=== PATIENT | female | born 1940 | race African-American/Black ===

== ENCOUNTER 2020-08-31 13:42 | Inpatient (IN) | payer MEDICARE, MEDICAID ==
[2020-08-31] MEDS ORDERED: Sodium Chloride 0.9% 1,000 ML ONE ×2 (14:01→15:36)
[2020-08-31 14:56] LABS: Bilirubin Negative (Negative); Blood, Urine Trace (Negative); Glucose, Urine (Dipstick) Negative (Negative); Ketone, Urine Negative (Negative); Leukocyte Small (Negative); Nitrite Positive (Negative); Protein, Urine (Dipstick) 30 mg/dL (Neg-Trace); Specific Gravity, Urine 1.015 (1.005-1.030); Urobilinogen 0.2 mg/dL (Less than 2)
[2020-08-31 15:03] LABS: ALT (SGPT) 10 U/L (8-55); AST (SGOT) 11 U/L (5-34); Albumin 3.3 g/dL (3.4-4.8); Alkaline Phosphatase 76 U/L (40-110); Anion Gap 17 mmol/L (10-20); BUN (Urea Nitrogen) 23 mg/dL (9.8-20.1); Bilirubin, Total 0.6 mg/dL (0.2-1.2); CK (CPK) 74 U/L (29-168); Calc. Creatinine Clearance 0 mL/min (70-130); Calcium 8.7 mg/dL (7.8-10.44); Carbon Dioxide 23 mmol/L (23-31); Chloride 102 mmol/L (98-107); Globulin 3.2 g/dL (2.4-3.5); Glucose 114 mg/dL (83-110); Magnesium 1.6 mg/dL (1.6-2.6); Potassium 3.9 mmol/L (3.5-5.1); Protein, Total 6.5 g/dL (5.8-8.1); Sodium 138 mmol/L (136-145)
[2020-08-31 15:12] LABS: Clarity Cloudy (Clear)
[2020-08-31 15:14] LABS: Bacteria/HPF 3+ HPF (None Seen); RBC/HPF 0-3 HPF (0-3)
[2020-08-31 15:20] LABS: Lymphocytes 3 % (21-51); MDiff Complete? YES; Mean Corpuscular HGB CONC 32.1 g/dL (32.0-36.0); Mean Corpuscular Volume 93.2 fL (78.0-98.0); Mean Platelet Volume 9.2 fL (7.4-10.4); Monocytes 4 % (0-10); Neutrophil 92 % (42-75); Platelet Count 266 thou/uL (130-400); Platelet Morphology Comment Appears Adequate; RBC Distribution Width 14.3 % (11.5-14.5); Reactive Lymphocytes 1 % (0-10); Red Blood Cell (RBC) Count 3.66 mill/uL (4.20-5.40); White Blood Cell (WBC) Count 26.6 thou/uL (4.8-10.8)
[2020-08-31] MEDS ORDERED: cefTRIAXone\\ROCEPHIN 1 GM VIAL ONE (15:36)
[2020-08-31] MEDS ORDERED: Sodium Chloride 0.9% 100 ML ONE (15:36)
[2020-08-31 17:49] LABS: Lactic Acid 2.4 mmol/L (0.5-2.2)
[2020-08-31] MEDS ORDERED: Ibuprofen 100 MG/5 ML UDCUP ONE (17:49)
[2020-08-31] MEDS ORDERED: GUAIFENESIN SF SOLN 200 MG/10 ML UDCUP PO PRN (23:36)
[2020-08-31] MEDS ORDERED: Mag-Al Plus 1200 MG/1200 MG/120 MG/30 ML UDCUP PO PRN (23:42)
[2020-08-31] MEDS ORDERED: Dextrose 5% in Water 1,000 ML IV PRN (23:45)
[2020-08-31] MEDS ORDERED: Dextrose 50% Abboject 50 ML SYRINGE IVP PRN (23:45)
[2020-08-31] MEDS ORDERED: Metoclopramide HCl 10 MG TAB PO PRN (23:46)
[2020-08-31] MEDS ORDERED: traMADol HCl 50 MG TAB PO PRN (23:47)
[2020-08-31] MEDS ORDERED: Artificial Tear Sol 15 ML BOT EA EYE PRN (23:49)
[2020-08-31] MEDS ORDERED: Loperamide HCl 2 MG CAP PO PRN ×2 (23:52→23:53)
[2020-08-31] MEDS ORDERED: DICLOFENAC 1% TD PRN (23:54)
[2020-09-01 01:07] VITALS: BMI 30.7
[2020-09-01] MEDS ORDERED: Dextrose 50% Abboject 50 ML SYRINGE SLOW IVP SCH (03:30)
[2020-09-01 05:38] LABS: Anion Gap 15 mmol/L (10-20); BUN (Urea Nitrogen) 21 mg/dL (9.8-20.1); Calc. Creatinine Clearance 45 mL/min (70-130); Calcium 9.4 mg/dL (7.8-10.44); Carbon Dioxide 25 mmol/L (23-31); Chloride 103 mmol/L (98-107); Glucose 82 mg/dL (83-110); Potassium 3.4 mmol/L (3.5-5.1); Sodium 140 mmol/L (136-145)
[2020-09-01 05:44] LABS: Hemoglobin 11.9 g/dL (12.0-16.0); Lymphocytes 17 % (21-51); MDiff Complete? YES; Mean Corpuscular HGB CONC 33.3 g/dL (32.0-36.0); Mean Corpuscular Volume 93.1 fL (78.0-98.0); Mean Platelet Volume 7.6 fL (7.4-10.4); Monocytes 4 % (0-10); Neutrophil 79 % (42-75); Platelet Count 305 thou/uL (130-400); Platelet Morphology Comment Appears Adequate; RBC Distribution Width 14.1 % (11.5-14.5); RBC Morphology Normal; Red Blood Cell (RBC) Count 3.85 mill/uL (4.20-5.40); White Blood Cell (WBC) Count 22.1 thou/uL (4.8-10.8)
[2020-09-01] MEDS: Potassium Chloride 10 MEQ TAB PO SCH (08:21)
[2020-09-01] MEDS: Aspirin 81 mg Enteric Coated Tablet PO SCH (08:21)
[2020-09-01] MEDS: DULoxetine 30 MG CAP PO SCH ×2 (08:22→21:06)
[2020-09-01] MEDS: Anastrozole 1 MG TAB PO SCH (08:22)
[2020-09-01] MEDS ORDERED: Furosemide 40 MG TAB PO SCH (09:00)
[2020-09-01] MEDS ORDERED: FLU VACC QS2020-21(65YR UP)/PF 240 MCG/0.7 ML SYRINGE IM ONE (09:00)
[2020-09-01] MEDS ORDERED: Furosemide 20 MG TAB PO SCH (14:00)
[2020-09-01] MEDS: D5 1/2 NS w/20 mEq KCL 1,000 ML IV SCH (14:07)
[2020-09-01] MEDS ORDERED: cefTRIAXone\\ROCEPHIN 1 GM in Sodium Chloride 0.9% 100 ML IVPB SCH (15:00)
[2020-09-01] MEDS: Enoxaparin Sodium 40 MG/0.4 ML SYRINGE SC SCH ×2 (21:06→21:18)
[2020-09-01] MEDS: Atorvastatin Calcium 10 MG TAB PO SCH (21:06)
[2020-09-01] MEDS: Latanoprost 0.005% Ophth Soln 2.5 ml Bottle EA EYE SCH (21:08)
[2020-09-02] MEDS: Acetaminophen 500 MG TAB PO PRN ×2 (00:04→21:33)
[2020-09-02] MEDS ORDERED: Dextrose 5 %-0.45 % NaCl 1,000 ML IV SCH (01:00)
[2020-09-02] MEDS: D5 1/2 NS w/20 mEq KCL 1,000 ML IV SCH (02:51)
[2020-09-02] MEDS: Cefepime 2 GM in Sodium Chloride 0.9% 100 ML IVPB SCH (03:10)
[2020-09-02 05:47] LABS: Anisocytosis SLIGHT = 6-15 cells (100X) (0-5/hpf); Eosinophils 5 % (0-10); Hemoglobin 10.7 g/dL (12.0-16.0); Hypochromia SLIGHT = 6-15 cells (100X) (0-5/hpf); Lymphocytes 11 % (21-51); MDiff Complete? YES; Mean Corpuscular HGB CONC 31.3 g/dL (32.0-36.0); Mean Corpuscular Volume 99.1 fL (78.0-98.0); Mean Platelet Volume 8.9 fL (7.4-10.4); Monocytes 4 % (0-10); Neutrophil 80 % (42-75); Platelet Count 298 thou/uL (130-400); Platelet Morphology Comment Appears Adequate; RBC Distribution Width 14.9 % (11.5-14.5); Red Blood Cell (RBC) Count 3.44 mill/uL (4.20-5.40); White Blood Cell (WBC) Count 20.9 thou/uL (4.8-10.8)
[2020-09-02 05:59] LABS: Anion Gap 17 mmol/L (10-20); BUN (Urea Nitrogen) 16 mg/dL (9.8-20.1); Calc. Creatinine Clearance 50 mL/min (70-130); Calcium 9.1 mg/dL (7.8-10.44); Carbon Dioxide 21 mmol/L (23-31); Chloride 104 mmol/L (98-107); Glucose 137 mg/dL (83-110); Potassium 3.9 mmol/L (3.5-5.1); Sodium 138 mmol/L (136-145)
[2020-09-02] MEDS: Anastrozole 1 MG TAB PO SCH (09:41)
[2020-09-02] MEDS: Potassium Chloride 10 MEQ TAB PO SCH (09:41)
[2020-09-02] MEDS: Aspirin 81 mg Enteric Coated Tablet PO SCH (09:41)
[2020-09-02] MEDS: Enoxaparin Sodium 40 MG/0.4 ML SYRINGE SC SCH (09:41)
[2020-09-02] MEDS: DULoxetine 30 MG CAP PO SCH ×2 (09:42→21:34)
[2020-09-02] MEDS: Sodium Chloride 0.45% 1,000 ML IV SCH (13:10)
[2020-09-02] MEDS: Atorvastatin Calcium 10 MG TAB PO SCH (21:34)
[2020-09-02] MEDS: Latanoprost 0.005% Ophth Soln 2.5 ml Bottle EA EYE SCH (21:34)
[2020-09-03] MEDS: Sodium Chloride 0.45% 1,000 ML IV SCH ×2 (01:57→15:05)
[2020-09-03] MEDS: Cefepime 2 GM in Sodium Chloride 0.9% 100 ML IVPB SCH (03:23)
[2020-09-03 08:32] LABS: Anion Gap 14 mmol/L (10-20); BUN (Urea Nitrogen) 11 mg/dL (9.8-20.1); Calc. Creatinine Clearance 0 mL/min (70-130); Calcium 9.1 mg/dL (7.8-10.44); Carbon Dioxide 20 mmol/L (23-31); Chloride 108 mmol/L (98-107); Glucose 133 mg/dL (83-110); Potassium 4.1 mmol/L (3.5-5.1); Sodium 138 mmol/L (136-145)
[2020-09-03 08:34] LABS: #Basophils 0.1 thou/uL (0.0-0.2); #Eosinphils 0.2 thou/uL (0.0-0.7); #Lymphocytes 1.4 thou/uL (1.20-3.40); #Monocytes 0.9 thou/uL (0.11-0.59); #Neutrophils 14.1 thou/uL (1.40-6.50); %Basophils 0.7 % (0.0-1.0); %Eosinophils 1.1 % (0.0-10.0); %Lymphocytes 8.3 % (21.0-51.0); %Monocytes 5.6 % (0.0-10.0); %Neutrophils 84.3 % (42.0-75.0); Hemoglobin 10.6 g/dL (12.0-16.0); Mean Corpuscular HGB CONC 31.2 g/dL (32.0-36.0); Mean Corpuscular Volume 99.3 fL (78.0-98.0); Mean Platelet Volume 8.9 fL (7.4-10.4); Platelet Count 364 thou/uL (130-400); RBC Distribution Width 15.2 % (11.5-14.5); Red Blood Cell (RBC) Count 3.43 mill/uL (4.20-5.40); White Blood Cell (WBC) Count 16.8 thou/uL (4.8-10.8)
[2020-09-03] MEDS: Potassium Chloride 10 MEQ TAB PO SCH (09:34)
[2020-09-03] MEDS: DULoxetine 30 MG CAP PO SCH ×2 (09:34→21:08)
[2020-09-03] MEDS: Aspirin 81 mg Enteric Coated Tablet PO SCH (09:34)
[2020-09-03] MEDS: Enoxaparin Sodium 40 MG/0.4 ML SYRINGE SC SCH (09:34)
[2020-09-03] MEDS: Anastrozole 1 MG TAB PO SCH (09:34)
[2020-09-03] MEDS: Atorvastatin Calcium 10 MG TAB PO SCH (21:08)
[2020-09-03] MEDS: Latanoprost 0.005% Ophth Soln 2.5 ml Bottle EA EYE SCH (21:15)
[2020-09-04] MEDS: Cefepime 2 GM in Sodium Chloride 0.9% 100 ML IVPB SCH (03:09)
[2020-09-04] MEDS: Sodium Chloride 0.45% 1,000 ML IV SCH (03:10)
[2020-09-04 07:43] LABS: #Basophils 0.1 thou/uL (0.0-0.2); #Eosinphils 0.3 thou/uL (0.0-0.7); #Lymphocytes 1.9 thou/uL (1.20-3.40); #Monocytes 1.2 thou/uL (0.11-0.59); #Neutrophils 12.5 thou/uL (1.40-6.50); %Basophils 0.7 % (0.0-1.0); %Eosinophils 1.9 % (0.0-10.0); %Lymphocytes 11.6 % (21.0-51.0); %Monocytes 7.6 % (0.0-10.0); %Neutrophils 78.2 % (42.0-75.0); Hemoglobin 9.8 g/dL (12.0-16.0); Mean Corpuscular HGB CONC 30.5 g/dL (32.0-36.0); Mean Corpuscular Hemoglobin 30.3 pg (27.0-31.0); Mean Corpuscular Volume 99.3 fL (78.0-98.0); Mean Platelet Volume 7.9 fL (7.4-10.4); Platelet Count 438 thou/uL (130-400); RBC Distribution Width 14.9 % (11.5-14.5); Red Blood Cell (RBC) Count 3.23 mill/uL (4.20-5.40)
[2020-09-04 07:55] LABS: Anion Gap 10 mmol/L (10-20); BUN (Urea Nitrogen) 9 mg/dL (9.8-20.1); Calc. Creatinine Clearance 0 mL/min (70-130); Calcium 8.9 mg/dL (7.8-10.44); Carbon Dioxide 26 mmol/L (23-31); Chloride 107 mmol/L (98-107); Glucose 117 mg/dL (83-110); Potassium 4.2 mmol/L (3.5-5.1); Sodium 139 mmol/L (136-145)
[2020-09-04] MEDS: Anastrozole 1 MG TAB PO SCH (08:48)
[2020-09-04] MEDS: DULoxetine 30 MG CAP PO SCH (08:49)
[2020-09-04] MEDS: Aspirin 81 mg Enteric Coated Tablet PO SCH (08:49)
[2020-09-04] MEDS: Enoxaparin Sodium 40 MG/0.4 ML SYRINGE SC SCH (08:49)
[2020-09-04] MEDS ORDERED: Pantoprazole 40 MG GRANULES PACKET PO SCH (09:00)
[2020-09-04] MEDS ORDERED: Potassium Bicarbonate/Cit Ac 20 MEQ TAB PO SCH (09:00)
[2020-09-04] MEDS ORDERED: Amlodipine 5 MG TAB PO SCH (09:00)
[2020-09-04 12:06] VITALS: BP 113/67; TEMP 99.1
== END 2020-09-04 13:38 | disposition swing bed (61) | DRG 872 ==
LOC: MADERS 13:42 → MADMS 19:06
PROVIDERS: ADMIT Family Medicine; ATTEND Family Medicine
DX: A41.9 Sepsis, unspecified organism (principal); N39.0 Urinary tract infection, site not specified; E11.649 Type 2 diabetes mellitus with hypoglycemia without coma; I11.0 Hypertensive heart disease with heart failure; I95.9 Hypotension, unspecified; E87.6 Hypokalemia; R13.10 Dysphagia, unspecified; B96.20 Unspecified Escherichia coli [E. coli] as the cause of diseases classified elsewhere; I69.30 Unspecified sequelae of cerebral infarction; Z85.3 Personal history of malignant neoplasm of breast
CPT/HCPCS: 36415; 36416; 51701; 70450; 71045; 80048; 80053; 81003; 81015; 82550; 83605; 83735; 83880; 84484; 85025; 87040; 87077; 87086; 87186; 87324; 87449; 93005; 94760; 96365; J0692; J0696; J1610; J1650; J3480; J3490; J7042; J7050

== ENCOUNTER 2020-09-04 14:03 | Inpatient (IN) | payer MEDICARE, MEDICAID ==
[2020-09-04 14:38] VITALS: BMI 30.7
[2020-09-04] MEDS ORDERED: Artificial Tear Sol 15 ML BOT EA EYE PRN ×2 (15:03)
[2020-09-04] MEDS ORDERED: traMADol HCl 50 MG TAB PO PRN (15:03)
[2020-09-04] MEDS ORDERED: Mag-Al Plus 1200 MG/1200 MG/120 MG/30 ML UDCUP PO PRN (15:03)
[2020-09-04] MEDS ORDERED: Acetaminophen 500 MG TAB PO PRN (15:03)
[2020-09-04] MEDS ORDERED: DICLOFENAC SODIUM TOP PRN (15:16)
[2020-09-04] MEDS: Atorvastatin Calcium 10 MG TAB PO SCH (20:54)
[2020-09-04] MEDS: Latanoprost 0.005% Ophth Soln 2.5 ml Bottle EA EYE SCH (20:55)
[2020-09-04] MEDS: DULoxetine 30 MG CAP PO SCH (20:55)
[2020-09-04] MEDS: Cefepime 2 GM in Sodium Chloride 0.9% 100 ML IVPB SCH (23:33)
[2020-09-05] MEDS ORDERED: Cefepime 2 GM VIAL IVPB SCH (03:00)
[2020-09-05] MEDS ORDERED: Non-Formulary Item 1 EACH (Sodium Chloride 0.9% [Normal Saline 0.9%] 100 ML Bag) IVPB SCH (03:00)
[2020-09-05 05:38] LABS: #Basophils 0.1 thou/uL (0.0-0.2); #Eosinphils 0.3 thou/uL (0.0-0.7); #Lymphocytes 2.1 thou/uL (1.20-3.40); #Monocytes 1.1 thou/uL (0.11-0.59); #Neutrophils 10.4 thou/uL (1.40-6.50); %Basophils 0.9 % (0.0-1.0); %Eosinophils 2.4 % (0.0-10.0); %Lymphocytes 15.1 % (21.0-51.0); %Monocytes 7.8 % (0.0-10.0); %Neutrophils 73.8 % (42.0-75.0); Hemoglobin 9.8 g/dL (12.0-16.0); Mean Corpuscular HGB CONC 30.7 g/dL (32.0-36.0); Mean Corpuscular Hemoglobin 30.5 pg (27.0-31.0); Mean Corpuscular Volume 99.3 fL (78.0-98.0); Mean Platelet Volume 7.6 fL (7.4-10.4); Platelet Count 526 thou/uL (130-400); Red Blood Cell (RBC) Count 3.21 mill/uL (4.20-5.40); White Blood Cell (WBC) Count 14.1 thou/uL (4.8-10.8)
[2020-09-05] MEDS: Anastrozole 1 MG TAB PO SCH (08:22)
[2020-09-05] MEDS: DULoxetine 30 MG CAP PO SCH ×2 (08:22→21:15)
[2020-09-05] MEDS: Aspirin 81 mg Enteric Coated Tablet PO SCH (08:22)
[2020-09-05] MEDS: Enoxaparin Sodium 40 MG/0.4 ML SYRINGE SC SCH (08:22)
[2020-09-05] MEDS: Potassium Bicarbonate/Cit Ac 20 MEQ TAB PO SCH (08:22)
[2020-09-05] MEDS ORDERED: Pantoprazole 40 MG GRANULES PACKET PO SCH (09:00)
[2020-09-05] MEDS: Latanoprost 0.005% Ophth Soln 2.5 ml Bottle EA EYE SCH (21:15)
[2020-09-05] MEDS: Atorvastatin Calcium 10 MG TAB PO SCH (21:15)
[2020-09-06] MEDS: Cefepime 2 GM in Sodium Chloride 0.9% 100 ML IVPB SCH (00:58)
[2020-09-06] MEDS: DULoxetine 30 MG CAP PO SCH (08:14)
[2020-09-06] MEDS: Potassium Bicarbonate/Cit Ac 20 MEQ TAB PO SCH (08:15)
[2020-09-06] MEDS: Anastrozole 1 MG TAB PO SCH (08:15)
[2020-09-06] MEDS: Aspirin 81 mg Enteric Coated Tablet PO SCH (08:15)
[2020-09-06] MEDS: Enoxaparin Sodium 40 MG/0.4 ML SYRINGE SC SCH (08:16)
[2020-09-06] MEDS ORDERED: Polyethylene Glycol 3350 17 GM Packet PO SCH (09:00)
[2020-09-06 10:16] VITALS: BP 136/72; TEMP 98.3
== END 2020-09-06 12:45 | DRG 872 ==
LOC: MADMS 14:03
PROVIDERS: ADMIT Family Medicine; ATTEND Family Medicine
DX: A41.9 Sepsis, unspecified organism (principal); N39.0 Urinary tract infection, site not specified; E11.649 Type 2 diabetes mellitus with hypoglycemia without coma; R65.10 Systemic inflammatory response syndrome (SIRS) of non-infectious origin without acute organ dysfunction; Z66 Do not resuscitate; R00.0 Tachycardia, unspecified; I11.0 Hypertensive heart disease with heart failure; E87.6 Hypokalemia; R13.10 Dysphagia, unspecified; I95.9 Hypotension, unspecified; F32.9 Major depressive disorder, single episode, unspecified; I69.30 Unspecified sequelae of cerebral infarction; Z85.3 Personal history of malignant neoplasm of breast
CPT/HCPCS: 36416; 85025; J0692; J1650; J3490

== ENCOUNTER 2021-05-21 20:52 | Emergency (ER) | payer MEDICARE, OTHER ==
[2021-05-21] MEDS ORDERED: Iopamidol 370 76% 125 ML VIAL FS ONE (20:53)
[2021-05-21 21:17] LABS: Prothrombin Time 13.5 sec (12.0-14.7)
[2021-05-21 21:27] LABS: Band 6 % (5-11); Lymphocytes 14 % (21-51); MDiff Complete? YES; Mean Corpuscular HGB CONC 30.7 g/dL (32.0-36.0); Mean Corpuscular Hemoglobin 28.5 pg (27.0-31.0); Mean Corpuscular Volume 92.9 fL (78.0-98.0); Mean Platelet Volume 7.6 fL (7.4-10.4); Monocytes 2 % (0-10); Neutrophil 78 % (42-75); Platelet Count 378 thou/uL (130-400); Platelet Morphology Comment Appears Adequate; RBC Morphology Normal; Red Blood Cell (RBC) Count 4.58 mill/uL (4.20-5.40); White Blood Cell (WBC) Count 17.5 thou/uL (4.8-10.8)
[2021-05-21 21:28] LABS: ALT (SGPT) 16 U/L (8-55); AST (SGOT) 15 U/L (5-34); Albumin 4.5 g/dL (3.4-4.8); Alkaline Phosphatase 73 U/L (40-110); Anion Gap 18 mmol/L (10-20); BUN (Urea Nitrogen) 21 mg/dL (9.8-20.1); Bilirubin, Total 0.4 mg/dL (0.2-1.2); Calc. Creatinine Clearance 0 mL/min (70-130); Calcium 10.8 mg/dL (7.8-10.44); Carbon Dioxide 26 mmol/L (23-31); Chloride 101 mmol/L (98-107); Globulin 3.9 g/dL (2.4-3.5); Glucose 115 mg/dL (83-110); Potassium 4.9 mmol/L (3.5-5.1); Protein, Total 8.4 g/dL (5.8-8.1); Sodium 140 mmol/L (136-145)
[2021-05-21 21:29] LABS: Acetaminophen Less than 6.0 mcg/mL (10.0-30.0); Alcohol Less than 10 mg/dL (Less than 10); Base Excess-Venous 3.6 mmol/L (-2.0 to 3.0); Bicarbonate (HCO3v) 28.7 mmol/L (22.0-28.0); CO2 Tension (PvCO2) 44.1 mmHg (42.0-51.0); Calcium, Ionized 1.15 mmol/L (1.15-1.33); Chloride 103 mmol/L (98-107); Hemoglobin - Calc 14.7 g/dL (12.0-16.0); Salicylate Less than 8.0 mg/dL (15.0-30.0); Sodium 141 mmol/L (138-145); T. Carbon Dioxide 30.1 mmol/L (22.0-28.0); vO2 Saturation-calc 99.7 % (60.0-85.0)
[2021-05-21] MEDS ORDERED: Acetaminophen 650 MG Suppository ONE (21:47)
[2021-05-21] MEDS ORDERED: Sodium Chloride 0.9% 250 ML 250 ML ONE (21:56)
[2021-05-21] MEDS ORDERED: Sodium Chloride 0.9% 1,000 ML ONE (21:56)
[2021-05-21 22:05] LABS: Bilirubin Negative (Negative); Blood, Urine Negative (Negative); Clarity Clear (Clear); Glucose, Urine (Dipstick) Negative (Negative); Ketone, Urine Negative (Negative); Leukocyte Negative (Negative); Nitrite Negative (Negative); Protein, Urine (Dipstick) Negative (Neg-Trace); Specific Gravity, Urine 1.015 (1.005-1.030); Urobilinogen 0.2 mg/dL (Less than 2)
[2021-05-21 22:15] LABS: SARS-CoV-2 NAA Rapid Test Not Detected (NotDetected)
[2021-05-21 22:18] LABS: Amphetamine Not Detected (NotDetected); Barbiturates Screen Not Detected (NotDetected); Benzodiazepine Screen Not Detected (NotDetected); Cocaine Metabolite Screen Not Detected (NotDetected); Medtox Control Line Valid? VALID (VALID); Methadone Not Detected (NotDetected); Methamphetamine Not Detected (NotDetected); Opiate Screen Not Detected (NotDetected); Oxycodone Screen Not Detected (NotDetected); Phencyclidine (PCP) Not Detected (NotDetected); THC/Cannabinoid Screen Not Detected (NotDetected); Tricyclic Screen Not Detected (NotDetected)
[2021-05-21] MEDS ORDERED: Cefepime 2 GM VIAL ONE (22:21)
[2021-05-21] MEDS ORDERED: Aspirin 300 MG Suppository ONE (22:29)
== END 2021-05-21 23:25 | disposition short-term general hospital (02) ==
LOC: MADERS 20:52
DX: A41.9 Sepsis, unspecified organism (principal); G93.40 Encephalopathy, unspecified; L02.31 Cutaneous abscess of buttock; E78.2 Mixed hyperlipidemia; I10 Essential (primary) hypertension; E11.9 Type 2 diabetes mellitus without complications; Z86.718 Personal history of other venous thrombosis and embolism
CPT/HCPCS: 51702; 70450; 70496; 70498; 71045; 80306; 80307; 81003; 82330; 82435; 82803; 83605; 84132; 84295; 84484; 85014; 85610; 85730; 87040; 87149 ×2; 93005; 94760; 96365; 96368; 99285; U0002; 84443; J0692; J3370; J7050; Q9967

== ENCOUNTER 2022-04-12 01:03 | Emergency (ER) | payer MEDICARE, OTHER ==
[2022-04-12 02:36] LABS: #Lymphocytes 1.6 thou/uL (1.20-3.40); #Monocytes 0.5 thou/uL (0.11-0.59); #Neutrophils 11.4 thou/uL (1.40-6.50); %Basophils 0.3 % (0.0-1.0); %Eosinophils 0.3 % (0.0-10.0); %Lymphocytes 11.9 % (21.0-51.0); %Monocytes 3.6 % (0.0-10.0); %Neutrophils 83.9 % (42.0-75.0); Hemoglobin 12.5 g/dL (12.0-16.0); Mean Corpuscular HGB CONC 31.5 g/dL (32.0-36.0); Mean Corpuscular Hemoglobin 29.6 pg (27.0-31.0); Mean Platelet Volume 7.7 fL (7.4-10.4); Platelet Count 382 thou/uL (130-400); RBC Distribution Width 12.9 % (11.5-14.5); Red Blood Cell (RBC) Count 4.24 mill/uL (4.20-5.40); White Blood Cell (WBC) Count 13.5 thou/uL (4.8-10.8)
[2022-04-12 02:51] LABS: ALT (SGPT) 8 U/L (8-55); AST (SGOT) 13 U/L (5-34); Alkaline Phosphatase 77 U/L (40-110); Anion Gap 19 mmol/L (10-20); BUN (Urea Nitrogen) 17 mg/dL (9.8-20.1); Bilirubin, Total 0.2 mg/dL (0.2-1.2); Calc. Creatinine Clearance 0 mL/min (70-130); Calcium 9.5 mg/dL (7.8-10.44); Carbon Dioxide 22 mmol/L (23-31); Chloride 102 mmol/L (98-107); Estimated GFR 40; Globulin 3.7 g/dL (2.4-3.5); Glucose 143 mg/dL (83-110); Lipase 34 U/L (8-78); Magnesium 1.7 mg/dL (1.6-2.6); Potassium 4.9 mmol/L (3.5-5.1); Protein, Total 7.7 g/dL (5.8-8.1); Sodium 138 mmol/L (136-145)
[2022-04-12] MEDS ORDERED: Ondansetron PF 4 MG/2 ML Vial ONE (04:24)
[2022-04-12] MEDS ORDERED: Lactated Ringer's 1,000 ML ONE ×2 (04:24→06:48)
[2022-04-12] MEDS ORDERED: Bisacodyl 10 MG SUPP ONE (05:05)
[2022-04-12 05:09] LABS: Lactic Acid 3.5 mmol/L (0.5-2.2)
[2022-04-12 06:44] LABS: Prothrombin Time 13.9 sec (12.0-14.7)
[2022-04-12 06:45] LABS: PTT 38.9 sec (22.9-36.1)
[2022-04-12 07:41] LABS: Bilirubin Negative (Negative); Blood, Urine Negative (Negative); Clarity Slightly Cloudy (Clear); Glucose, Urine (Dipstick) 500 mg/dL (Negative); Ketone, Urine Negative (Negative); Leukocyte Negative (Negative); Nitrite Negative (Negative); Protein, Urine (Dipstick) Negative (Neg-Trace); Urobilinogen 0.2 mg/dL (Less than 2); pH, Urine 6.5 (5.0-9.0)
[2022-04-12 08:29] LABS: SARS-CoV-2 NAA Rapid Test Not Detected (NotDetected)
[2022-04-12] MEDS ORDERED: Dicyclomine 20 MG/2 ML VIAL ONE (08:37)
[2022-04-12] MEDS ORDERED: Polyethylene Glycol 3350 17 GM Packet ONE (08:37)
== END 2022-04-12 11:25 | disposition short-term general hospital (02) ==
LOC: MADERS 01:03
DX: K56.41 Fecal impaction (principal); E87.20 Acidosis, unspecified; I10 Essential (primary) hypertension; E11.9 Type 2 diabetes mellitus without complications; Z79.82 Long term (current) use of aspirin; Z79.84 Long term (current) use of oral hypoglycemic drugs; Z79.899 Other long term (current) drug therapy
CPT/HCPCS: 0240U; 71045; 74176; 80053; 81003; 83605; 83690; 83735; 84484; 85025; 85610; 85730; 87040; 87077; 87086; 87186; 94760; 36415; 96361; 96372; 96374; J2405; J7120